=== PATIENT | male | born 1995 | race Hispanic/Latino ===

== ENCOUNTER 2022-07-23 16:36 | Emergency (ER) | payer SELFPAY ==
--- OUTSIDE RECORDS SUMMARY | 2022-07-23 16:39 | XMS REPORT | Continuity of Care Document ---
:1995 Author Organization [facility] t Address [address] [place] [address] Care Team Providers Name Role Phone PCP, PATIENT DOES NOT HAVE A Primary Care Physician Unavaila FCO Salgado Attending Clinician Unavailable Fco Tapia MD Attending Clinician Doctor Unassigned, [place] Attending Clinician Unavailable Problems Condition Condition Condition Status Onset Resolution Last Treating Co mments Source Name Details Category Date Date Treatment Clinician Date No known No known Disease Unive rs active active ity of problems problems [facility] Allergies, Adverse Reactions, Alerts Allergy Allergy Status Severity Reaction(s) Onset Inactive Treating Comm ents Source Name Type Date Date Clinician NO KNOWN Drug Active Univers ALLERGIE Class ity of S [facility] Social History Social Habit Start Date Stop Date Quantity Comments Source Exposure to 2022-02-06 2022-02-16 Not sure [facility] SARS-CoV-2 (event) 00:00:00 22:33:00 Medica l Branch Sex Assigned At [birth year] [facility] [place] 00:00:00 00:00:00 Medical Branch Smoking Status Start Date Stop Date Source Tobacco smoking consumption [facility] Branch Medications Ordered Filled Start Stop Current Ordering Indication Dosage Frequency Signature Comments Components Source Medication Medication Date Date Medication? Clinician (SIG) Name Name acetaminoph 650mg 650 mg, U nivers en 02-17 Oral, ity of (TYLENOL) 03:45: 03:44 ONCE, [place] tablet 650 00 :00 dose, On Medic al mg Sat Branch 02/16/22 at 2245, RAGHAVENDRA No known No No known Unive rs medications 7-16 medication it y of 23:17: s [place] 34 [facility] [place] No known 2019-0 No No known Unive rs medications 9-04 medication it y of 20:40: s [place] 21 [facility] Vital Signs Vital Name Observation Time Observation Value Comments Source Systolic blood 2022-02-17 04:30:00 127 mm[Hg] Univer sity of pressure [facility] Diastolic blood 2022-02-17 04:30:00 79 mm[Hg] Unive rsity of pressure [facility] Heart rate 2022-02-17 04:30:00 98 /min [facility] Body temperature 2022-02-17 04:30:[address] [facility] Respiratory rate 2022-02-17 04:30:00 18 /min [facility] Oxygen saturation in 2022-02-17 04:30:00 97 /min [facility] blood by [facility] Pulse oximetry Branch Body height 2022-02-17 03:35:00 188 cm [facility] Body weight 2022-02-17 03:35:00 127.96 kg [facility] BMI 2022-02-17 03:35:00 36.22 kg/m2 [facility] Procedures Procedure Date / Time Performed Performing Clinician [facility] e RAPID STREP SCREEN 2022-02-17 03:42:[address] [facility] FOR GROUP A [facility] RAPID INFLUENZA A/B 2022-02-17 03:42:00 Fco Tapia [facility] COVID-19 (ID NOW 2022-02-17 03:42:00 Fco Tapia [facility] RAPID TESTING) [facility] NOTICE OF PRIVACY 2022-02-17 03:27:22 Doctor Unassigned, No [facility] Branch CONSENT/REFUSAL FOR 2022-02-17 03:26:40 Doctor Unassigned, No [facility] DI[facility] AND Name Medical Branch TREATMENT Encounters Start End Encounter Admission Attending Care Care Encounter Source Date/Time Date/Time Type Type Clinicians Facility Department ID 2022-02-16 2022-02-16 Emergency X MILENA TAPIA ERT [id number] Univers 22:40:00 23:41:[address] [facility] 2022-02-16 2022-02-16 Emergency [place], [facility] [id number] Univers 22:40:00 23:41:00 Fco LEE [id number] i ty of [place] [id number] [facility] [id number] [facility] 084 Branch 2022-02-16 2022-02-16 Orders Doctor BRONSON [id number] Univers 00:00:00 00:00:00 Only Unassigned, CHER [id number] ity of [place] [facility] [id number] [facility] [id number] [facility] 009 Branch Results This patient has no known results.
[2022-07-23] MEDS ORDERED: FAMOTIDINE 20 MG/2 ML VIAL IV ONE (17:37)
[2022-07-23] MEDS ORDERED: DICYCLOMINE HCL 10 MG CAP ONE (17:37)
[2022-07-23] MEDS ORDERED: NA CHLORIDE 0.9% 1,000 ML ONE ×2 (17:37→19:24)
[2022-07-23] MEDS ORDERED: ONDANSETRON 4 MG/2 ML VIAL ONE (17:37)
[2022-07-23 17:58] LABS: Albumin 3.8 g/dL (3.4-5.0); Bilirubin Total 1.1 mg/dL (0.2-1.0); Potassium 4.2 mmol/L (3.5-5.1); Protein, Total 7.9 g/dL (6.4-8.2)
[2022-07-23 18:05] LABS: Lymphocytes % 8.6 % (15.3-44.8); MCV 88.6 fL (80-100); MPV 8.3 fL (7.6-11.3); RBC Red Blood Cell Count 4.96 M/uL (4.33-5.43)
[2022-07-23 18:47] LABS: Urine Blood Negative (Negative); Urine Glucose Negative (Negative); Urine Protein 1+ (Negative); Urine Specific Gravity 1.015 (1.005-1.030); Urine pH 5.5 (5.0-7.0)
[2022-07-23 18:58] LABS: Urine Bacteria None Seen /HPF (<20); Urine Mucus 1+ /HPF (None Seen); Urine RBC <5 /HPF (None Seen)
--- NOTE | 2022-07-23 19:04 | RAD REPORT ---
EXAM DESCRIPTION: CTAbdomen Pelvis W Contrast - 07/23/2022 6:28 pm CLINICAL HISTORY: Abdominal pain. abdominal pain COMPARISON: <Comparisons> TECHNIQUE: Biphasic CT imaging of the abdomen and pelvis was performed with 100 ml non-ionic IV cont rast. All CT scans are performed using dose optimization technique as appropriate and may include automated exposure control or mA/KV adjustment according to patient size. FINDINGS: The lung bases are clear. The liver demonstrates diffuse fatty infiltration. Spleen, pancreas, adrenal glands and kidneys are w ithin normal limits. No bowel obstruction, free air, free fluid or abscess. The appendix is normal in size but contains a n appendicolith. No evidence of significant lymphadenopathy. No suspicious bony findings. IMPRESSION: No acute intra-abdominal or pelvic finding.
[2022-07-23 20:27] LABS: C.diff Antigen/Toxin Ag neg : Tox neg (NEG : NEG)
--- NOTE | 2022-07-23 20:42 | ER ---
Nurse's Notes [facility] Name: Rajeev Vasquez Age: 27 yrs Sex: Male : 1995 Arrival Date: 07/23/2022 Time: 16:39 Bed 13 Private MD: Diagnosis: Diarrhea, unspecified;Abdominal pain, unspecified Presentation: 07/23 16:49 Chief complaint: Patient states: a week ago I went to clinic and I was told I have a iw bacteria in my stomach, was started on antibiotics , not getting better. Today I woke up really tired and pain in my bones, I had a fever earlier, lost my appetite , still has diarrhea that's getting worse. Coronavirus screen: Client presents with at least one sign or symptom that may indicate coronavirus-19. Ebola Screen: Patient negative for fever greater than or equal to 101.5 degrees Fahrenheit, and additional compatible Ebola Virus Disease symptoms Patient denies exposure to infectious person. Patient denies travel to an Ebola-affected area in the 21 days before illness onset. No symptoms or risks identified at this time. Initial Sepsis Screen: Does the patient meet any 2 criteria? No. Patient's initial sepsis screen is negative. Does the patient have a suspected source of infection? No. Patient's initial sepsis screen is negative. Risk Assessment: Do you want to hurt yourself or someone else? Patient reports no desire to harm self or others. Onset of symptoms was July 08, 2022. 16:49 Method Of Arrival: Ambulatory iw 16:49 Acuity: JAZ 3 iw Triage Assessment: 17:00 General: Appears uncomfortable, obese, Behavior is calm, cooperative, appropriate for bp age. Pain: Complains of pain in abdomen. EENT: No deficits noted. Neuro: No deficits noted. Cardiovascular: Rhythm is sinus tachycardia. Respiratory: No deficits noted. GI: Reports cramping, diarrhea, nausea. : No signs and/or symptoms were reported regarding the genitourinary system. Derm: No deficits noted. Musculoskeletal: No deficits noted. Historical: - Allergies: 16:52 No Known Allergies; iw - Home Meds: 16:52 Clarithromycin Oral [Active]; Omeprazole Oral [Active]; Amoxicillin Oral [Active]; iw - PMHx: 16:52 None; iw - PSHx: 16:52 None; iw - Immunization history:: Adult Immunizations up to date. - Social history:: Smoking status: Patient/guardian denies using tobacco, Stopped _ months ago 1 Patient uses alcohol, stopped drinking about a month ago, used to drink heavily on the weekends . Screenin:00 [facility] ED Fall Risk Assessment (Adult) History of falling in the last 3 months, bp including since admission No falls in past 3 months (0 pts). Humpty Dumpty Scale Fall Assessment Tool (age< 18yrs) Age 13 years and above (1 pt). Abuse screen: Denies threats or abuse. Denies injuries from another. Nutritional screening: No deficits noted. Tuberculosis screening: No symptoms or risk factors identified. Fall Risk No fall in past 12 months (0 pts). Assessment: 17:00 General: SEE TRIAGE NOTE. bp 17:54 Reassessment: No changes from previously documented assessment. Patient and/or family bp updated on plan of care and expected duration. Pain level reassessed. 20:54 GI: ke1 Vital Signs: 16:49 BP 144 / 103; Pulse 112; Resp 16; Temp 98.1; Pulse Ox 98% on R/A; Weight 122.47 kg; iw Height 6 ft. 2 in. (187.96 cm); 17:54 BP 96 / 38; Pulse 90; Resp 16; Pulse Ox 97% ; bp 20:22 BP 126 / 76; Pulse 90; Resp 19; Pulse Ox 98% on R/A; ke1 16:49 Body Mass Index 34.67 (122.47 kg, 187.96 cm) ED Course: 16:39 Patient arrived in ED. mr 16:42 Jd Goss PA is PHCP. cp 16:42 Rafael Esteban DO is Attending Physician. cp 16:52 Triage completed. iw 16:54 Arm band placed on. iw 17:00 Patient has correct armband on for positive identification. Bed in low position. Call bp light in reach. Side rails up X2. Adult w/ patient. 17:02 Issac Rosa, RN is Primary Nurse. bp 17:40 Inserted saline lock: 20 gauge in right antecubital area, using aseptic technique. bp Blood collected. 18:29 CT Abd/Pelvis - IV Contrast Only In Process Unspecified. EDMS 20:54 No provider procedures requiring assistance completed. IV discontinued. ke1 Administered Medications: 17:30 Drug: NS 0.9% 1000 ml Route: IV; Rate: 1 bolus; Site: right antecubital; bp 17:30 Drug: Pepcid (famotidine) 20 mg Route: IVP; Site: right antecubital; bp 20:48 Follow up: Response: Marked relief of symptoms ke1 17:30 Drug: Zofran (Ondansetron) 4 mg Route: IVP; Site: right antecubital; bp 19:00 Follow up: Response: Nausea is decreased ke1 17:30 Drug: Dicyclomine 20 mg Route: PO; bp 19:00 Follow up: Response: Marked relief of symptoms ke1 19:24 Drug: NS 0.9% 1000 ml Route: IV; Rate: 1 bolus; Site: right antecubital; as6 Medication: 17:00 VIS not applicable for this client. bp Outcome: 20:41 Discharge ordered by . cp 20:54 Discharged to home ambulatory. ke1 20:54 Condition: good 20:54 Discharge instructions given to patient. 20:54 Patient left the ED. ke1 Signatures: Dispatcher [employer] EDMN Norah Dean Shelley Calle RN RN Jd Berrios PA PA cp Peltier, Brian, Jasiel Abdalla RN, RN RN as6 Opal Garcia RN RN ke1
--- NOTE | 2022-07-23 20:43 | EDPHYS ---
Physician Documentation [facility] Name: Rajeev Vasquez Age: 27 yrs Sex: Male : 1995 Arrival Date: 07/23/2022 Time: 16:39 Bed 13 Private MD: ED Physician Rafael Esteban HPI: 07/23 17:10 This 27 yrs old Male presents to ER via Ambulatory with complaints of cp Abdominal Pain, Diarrhea. 17:10 The patient presents with abdominal pain mid abdomen. Onset: The symptoms/episode cp began/occurred 1 week(s) ago. The symptoms do not radiate. Associated signs and symptoms: Pertinent positives: diarrhea, fever, nausea, Pertinent negatives: blood in stools, chest pain, constipation, dysuria, headache, shortness of breath, testicular pain, vomiting. The symptoms are described as crampy. 17:10 Severity of pain: in the emergency department the pain is unchanged despite home cp interventions. The patient has been recently seen by a physician: at a clinic, last week. Patient reports he was diagnosed with "stomach bacteria" and has been taking prescribed antibiotics: Amoxicillin and Clarithromycin, also omeprazole. Reports diarrhea is watery. Historical: - Allergies: 16:52 No Known Allergies; iw - Home Meds: 16:52 Clarithromycin Oral [Active]; Omeprazole Oral [Active]; Amoxicillin Oral [Active]; iw - PMHx: 16:52 None; iw - PSHx: 16:52 None; iw - Immunization history:: Adult Immunizations up to date. - Social history:: Smoking status: Patient/guardian denies using tobacco, Stopped _ months ago 1 Patient uses alcohol, stopped drinking about a month ago, used to drink heavily on the weekends . ROS: 17:15 Constitutional: Negative for body aches, chills, fever, poor PO intake. cp 17:15 Cardiovascular: Negative for chest pain, palpitations. cp 17:15 Respiratory: Negative for cough, shortness of breath, wheezing. 17:15 Abdomen/GI: Positive for nausea, diarrhea, abdominal cramps, Negative for vomiting, constipation, anorexia, black/tarry stool, rectal bleeding. 17:15 Back: Negative for pain at rest, pain with movement. 17:15 : Negative for urinary symptoms, hematuria, testicular pain 17:15 Skin: Negative for rash. 17:15 Neuro: Negative for altered mental status, dizziness, headache, syncope, weakness. 17:15 All other systems are negative. Exam: 17:20 Constitutional: The patient appears in no acute distress, alert, awake, non-toxic, well cp developed, well nourished, afebrile 17:20 Head/Face: Normocephalic, atraumatic. cp 17:20 Eyes: Periorbital structures: appear normal, Conjunctiva: normal, no exudate, no injection, Sclera: no appreciated abnormality, Lids and lashes: appear normal, bilaterally. 17:20 ENT: External ear(s): are unremarkable, Nose: is normal, Mouth: is normal, Posterior pharynx: Airway: no evidence of obstruction, patent. 17:20 Chest/axilla: Inspection: normal. 17:20 Cardiovascular: Rate: tachycardic, Rhythm: regular, JVD: is not appreciated. 17:20 Respiratory: the patient does not display signs of respiratory distress, Respirations: normal, no use of accessory muscles, no retractions, labored breathing, is not present, Breath sounds: are clear throughout, no decreased breath sounds, no stridor, no wheezing. 17:20 Abdomen/GI: Inspection: abdomen appears normal, Bowel sounds: active, all quadrants, Palpation: soft, in all quadrants, mild abdominal tenderness, in all quadrants, rebound tenderness, is not appreciated, involuntary guarding, is not appreciated. 17:20 Back: pain, is absent, ROM is normal. 17:20 Neuro: Orientation: to person, place \\T\\ time. Mentation: is normal, Motor: moves all fours, strength is normal, Sensation: is normal. Vital Signs: 16:49 BP 144 / 103; Pulse 112; Resp 16; Temp 98.1; Pulse Ox 98% on R/A; Weight 122.47 kg; iw Height 6 ft. 2 in. (187.96 cm); 17:54 BP 96 / 38; Pulse 90; Resp 16; Pulse Ox 97% ; bp 20:22 BP 126 / 76; Pulse 90; Resp 19; Pulse Ox 98% on R/A; ke1 16:49 Body Mass Index 34.67 (122.47 kg, 187.96 cm) iw MDM: 16:55 Patient medically screened. cp 18:00 Differential diagnosis: appendicitis, cholecystitis, Cholelithiasis, non-specific abd cp pain, pancreatitis, Peptic Ulcer Disease, Perf. Duodenal Ulcer, Perf. Gastric Ulcer, urinary tract infection. 20:40 Data reviewed: vital signs, nurses notes, lab test result(s), radiologic studies, CT cp scan, I have discussed the patient's presentation/case with the attending Emergency Department Physician; and as a result, I will discharge patient. 20:40 Counseling: I had a detailed discussion with the patient and/or guardian regarding: the cp historical points, exam findings, and any diagnostic results supporting the discharge/admit diagnosis, lab results, radiology results, the need for outpatient follow up, a family practitioner. Response to treatment: the patient's symptoms have markedly improved after treatment. ED course: VSS. Discussed results of labs and radiology studies. Patient reports 3 days left of taking meds, can continue and recommend probiotic and monitor symptoms. Otherwise f/u with pcp for alternative treatment for H. Pylori. 07/23 17:06 Order name: CBC with Diff; Complete Time: 18:13 07/23 19:09 Interpretation: Normal except: WBC 11.70; ROB% 84.5; LYM% 8.6; NEUT A 9.8. 07/23 17:06 Order name: CMP; Complete Time: 18:13 07/23 19:09 Interpretation: Normal except: NA 134; BILIT 1.1; GLOB 4.1; A/G 0.9. 07/23 17:06 Order name: Lipase; Complete Time: 18:13 07/23 17:06 Order name: Urine Microscopic Only; Complete Time: 19:08 07/23 19:09 Interpretation: Reviewed. 07/23 17:06 Order name: CT Abd/Pelvis - IV Contrast Only; Complete Time: 19:08 07/23 19:08 Interpretation: Report reviewed. 07/23 17:06 Order name: CDIFF; Complete Time: 20:40 07/23 17:07 Order name: Lactate w/ 2H reflex if indic.; Complete Time: 20:40 07/23 18:47 Order name: Urine Dipstick-Ancillary; Complete Time: 19:08 EDNC 07/23 19:08 Interpretation: Normal except: UPROT 1+. 07/23 17:06 Order name: IV Saline Lock; Complete Time: 17:53 cp 07/23 17:06 Order name: Labs collected and sent; Complete Time: 17:53 cp 07/23 17:06 Order name: Urine Dipstick-Ancillary (obtain specimen); Complete Time: 19:06 cp Administered Medications: 17:30 Drug: NS 0.9% 1000 ml Route: IV; Rate: 1 bolus; Site: right antecubital; bp 17:30 Drug: Pepcid (famotidine) 20 mg Route: IVP; Site: right antecubital; bp 20:48 Follow up: Response: Marked relief of symptoms ke1 17:30 Drug: Zofran (Ondansetron) 4 mg Route: IVP; Site: right antecubital; bp 19:00 Follow up: Response: Nausea is decreased ke1 17:30 Drug: Dicyclomine 20 mg Route: PO; bp 19:00 Follow up: Response: Marked relief of symptoms ke1 19:24 Drug: NS 0.9% 1000 ml Route: IV; Rate: 1 bolus; Site: right antecubital; as6 Disposition Summary: 07/23/22 20:41 Discharge Ordered Location: Home cp Problem: new cp Symptoms: have improved cp Condition: Stable cp Diagnosis - Diarrhea, unspecified cp - Abdominal pain, unspecified cp Followup: cp - With: Private Physician - When: 2 - 3 days - Reason: Recheck today's complaints Discharge Instructions: - Discharge Summary Sheet cp - Abdominal Pain, Adult cp - Food Choices to Help Relieve Diarrhea, Adult cp - Diarrhea, Adult cp - Probiotics cp Forms: - Medication Reconciliation Form cp - Thank You Letter cp - Antibiotic Education cp - Prescription Opioid Use cp Prescriptions: - Zofran 4 mg Oral Tablet - take 1 tablet by ORAL route every 12 hours As needed; 20 tablet; Refills: 0, cp Product Selection Permitted - dicyclomine 20 mg Oral Tablet - take 1 tablet by ORAL route 4 times per day; 30 tablet; Refills: 0, Product cp Selection Permitted Signatures: Dispatcher [employer] Shelley Steinberg RN RN iw Jd Goss PA PA cp Issac Rosa RN RN bp Jasiel Mesa RN RN as6 Opal Garcia RN ke1 Corrections: (The following items were deleted from the chart) 07/24 16:07/23 17:10 Associated signs and symptoms: Pertinent positives: diarrhea, fever, cp Pertinent negatives: blood in stools, chest pain, constipation, shortness of breath, testicular pain, vomiting, cp 07/24 17:10 The symptoms are described as achy, cp cp
[2022-07-23 21:17] VITALS: TEMP 98.1
[2022-07-23 21:20] VITALS: BP 126/76; O2SAT 98
== END 2022-07-23 20:54 | disposition home or self-care (01) ==
LOC: ER 16:36
DX: R19.7 Diarrhea, unspecified (principal); R10.9 Unspecified abdominal pain
CPT/HCPCS: 36415; 74177; 80053; 81003; 81015; 83605; 83690; 85025; 87324; 96374; 96375; 99284; J2405; J7030